=== PATIENT | female | born 1975 | race Caucasian/White ===

== ENCOUNTER → 2018-07-16 | Outpatient (CLI) | payer BC ==
--- NOTE | 2018-07-17 06:34 | MR ---
EXAMINATION TYPE: MR knee RT wo con DATE OF EXAM: 07/16/2018 COMPARISON: Outside right knee x-ray from 5 days ago. HISTORY: Rt knee swelling and pain x 1 month after bending down/felt a pop; hx of multiple surgeries /tumor removal TECHNIQUE: Multiplanar, multisequence images of the knee is performed without IV contrast. FINDINGS: MEDIAL MENISCUS: Anterior and posterior horns are intact without tear. LATERAL MENISCUS: Anterior and posterior horns are intact without tear. CRUCIATE LIGAMENTS: The anterior and posterior cruciate ligaments are intact and unremarkable. COLLATERAL LIGAMENTS: The medial collateral ligament and lateral collateral ligament complex are inta ct and unremarkable. EXTENSOR MECHANISM: Visualized quadriceps and patellar tendons are intact. EFFUSION: There is tiny suprapatellar joint effusion. POPLITEAL CYST: No popliteal/doherty cyst. TRICOMPARTMENT SPACES: Mild tricompartment joint space loss and spurring is present. CARTILAGE: Some early chondromalacia patella is seen with fissuring of cartilage along the posterior patellar pole. BONE MARROW SIGNAL: There is artifact overlying visualized portion of proximal tibial metadiaphysis l ikely from prior surgical fixation hardware. No suspicious signal or edema is seen superior to this. OTHER: No additional significant abnormality is appreciated. IMPRESSION: Evidence of prior surgery proximal tibial level. No meniscal or ligamentous tear is seen.
== END | disposition home or self-care (01) ==
LOC: RADMRIMAIN 18:27
PROVIDERS: ATTEND Orthopaedic Surgery
DX: M25.561 Pain in right knee (principal)

== ENCOUNTER → 2018-12-22 | Outpatient (CLI) | payer BC ==
--- NOTE | 2018-12-22 16:42 | XR ---
EXAMINATION: XR chest 2V DATE AND TIME: 12/22/2018 4:31 PM CLINICAL INDICATION: PHH; R10 TECHNIQUE: Departmental protocol COMPARISON: None FINDINGS: The lungs are clear. The pleural spaces are negative. The cardiac silhouette is not enlarged. The remainder of the mediastinal silhouette is unremarkable. The skeletal structures and soft tissues are negative for acute findings. IMPRESSION: NO ACUTE PROCESS.
== END | disposition home or self-care (01) ==
LOC: RADXRMAIN 16:10
PROVIDERS: ATTEND Family Medicine
DX: R05 Cough (principal)
CPT/HCPCS: 71046

== ENCOUNTER → 2019-09-28 | Outpatient (CLI) | payer BC ==
[2019-09-28 12:30] LABS: Basophils % (A) 0 %; Eosinophils # (A) 0.1 k/uL (0-0.7); Eosinophils % (A) 1 %; HCT 37.8 % (34.0-46.0); HGB 11.4 gm/dL (11.4-16.0); Hypochromasia Marked; Lymphocytes # (A) 1.3 k/uL (1.0-4.8); Lymphocytes % (A) 13 %; MCH 25.4 pg (25.0-35.0); MCHC 30.3 g/dL (31.0-37.0); MCV 83.9 fL (80.0-100.0); Mean Platelet Volume 6.6; Monocytes # (A) 0.7 k/uL (0-1.0); Monocytes % (A) 7 %; Neutrophils # (A) 7.4 k/uL (1.3-7.7); Neutrophils % (A) 76 %; Platelet Count 387 k/uL (150-450); RDW 15.3 % (11.5-15.5); WBC 9.7 k/uL (3.8-10.6)
[2019-09-28 13:05] LABS: Total Eosinophil Count 58 #EOS/uL (150-300)
[2019-09-28 18:44] LABS: African American GFR (CKD) 121.3 (60.0-200.0); Albumin 4.3 g/dL (3.80-4.90); Albumin/Globulin Ratio 1.72 (1.60-3.17); BUN/Creat Ratio 24.29 Ratio (12.00-20.00); Calcium 9.1 mg/dL (8.7-10.3); Globulin 2.5 g/dL (1.6-3.3); Non-African American GFR(CKD) 104.6 (60.0-200.0); Potassium 4.2 mmol/L (3.5-5.5); Total Bilirubin 0.3 mg/dL (0.3-1.2); Total Protein 6.8 g/dL (6.2-8.2)
== END | disposition home or self-care (01) ==
LOC: LABWHC1 11:33
PROVIDERS: ATTEND Internal Medicine Critical Care Medicine
DX: R05 Cough (principal)
CPT/HCPCS: 36415; 80053; 82785; 85008; 85025

== ENCOUNTER → 2019-09-30 | Outpatient (CLI) | payer BC ==
--- NOTE | 2019-09-30 16:35 | CT ---
EXAMINATION TYPE: CT chest w con DATE OF EXAM: 09/30/2019 COMPARISON: NONE HISTORY: cough, dyspnea CT DLP: 206.8 mGycm. Automated Exposure Control for Dose Reduction was Utilized. TECHNIQUE: CT scan of the thorax is performed following with IV Contrast, patient injected with 100 mL of Isovue 300. FINDINGS: LUNGS: Mild biapical pleural/parenchymal scarring. No suspicious focal consolidation or groundglass o pacity. There is no pleural effusion or pneumothorax seen bilaterally. The tracheobronchial tree i s patent. MEDIASTINUM: There are no greater than 1 cm hilar or mediastinal lymph nodes. No cardiomegaly or pe ricardial effusion is seen. 4 vessel origin from aortic arch which is normal variant OTHER: Mild multilevel spurring in the thoracic spine. IMPRESSION: No significant acute or chronic pulmonary process.
== END | disposition home or self-care (01) ==
LOC: RADCTMAIN 15:28
PROVIDERS: ATTEND Internal Medicine Critical Care Medicine
DX: R06.00 Dyspnea, unspecified (principal)
CPT/HCPCS: 71260; Q9967

== ENCOUNTER → 2019-10-07 | Outpatient (CLI) | payer BC ==
[2019-10-07 23:58] LABS: T4, Free (Free Thyroxine) 0.9 ng/dL (0.80-1.80)
== END | disposition home or self-care (01) ==
LOC: LABWHC1 11:56
PROVIDERS: ATTEND Internal Medicine Critical Care Medicine
DX: R05 Cough (principal)
CPT/HCPCS: 36415; 84439; 84443; 85652

== ENCOUNTER → 2019-10-08 | Outpatient (CLI) | payer BC ==
--- NOTE | 2019-10-09 07:58 | ECHOF ---
Referral Reason:R05 Chronic cough MEASUREMENTS -------- HEIGHT: 162.6 cm WEIGHT: 73.5 kg BP: RVIDd: 2.0 cm (< 3.3) IVSd: 0.8 cm (0.6 - 1.1) LVIDd: 4.0 cm (3.9 - 5.3) LVPWd: 1.0 cm (0.6 - 1.1) IVSs: 1.6 cm LVIDs: 2.1 cm LVPWs: 1.7 cm LAESV Index (A-L): 13.84 ml/m Ao Diam: 2.9 cm (2.0 - 3.7) AV Cusp: 2.1 cm (1.5 - 2.6) LA Diam: 2.7 cm (2.7 - 3.8) MV EXCURSION: 9.111 mm (> 18.000) MV EF SLOPE: 62 mm/s (70 - 150) EPSS: 0.8 cm MV E Iain: 0.87 m/s MV DecT: 83 ms MV A Iain: 0.55 m/s MV E/A Ratio: 1.60 RAP: 5.00 mmHg RVSP: 16.30 mmHg FINDINGS -------- Sinus rhythm. This was a technically good study. The left ventricular size is normal. Left ventricular wall thickness is normal. Overall left vent ricular systolic function is normal with, an EF between 55 - 60 %. The diastolic filling pattern is normal for the age of the patient 8.61. The right ventricle is normal in size. The left atrial size is normal. Normal LA size by volume 22+/-6 ml/m2. The right atrial size is normal. Interatrial and interventricular septum intact. The aortic valve is trileaflet and appears structurally normal. The mitral valve is normal. There is trace mitral regurgitation. The tricuspid valve appears structurally normal. Trace tricuspid regurgitation present. Right sultana tricular systolic pressure is normal at < 35 mmHg. There is no pulmonic regurgitation present. The aortic root size is normal. Normal inferior vena cava with normal inspiratory collapse consistent with estimated right atrial pre ssure of 5 mmHg. There is no pericardial effusion. CONCLUSIONS -------- 1. Sinus rhythm. 2. This was a technically good study. 3. The left ventricular size is normal. 4. Left ventricular wall thickness is normal. 5. Overall left ventricular systolic function is normal with, an EF between 55 - 60 %. 6. The diastolic filling pattern is normal for the age of the patient 8.61 7. The right ventricle is normal in size. 8. The left atrial size is normal. 9. Normal LA size by volume 22+/-6 ml/m2. 10. The right atrial size is normal. 11. Interatrial and interventricular septum intact. 12. The aortic valve is trileaflet and appears structurally normal. 13. The mitral valve is normal. 14. There is trace mitral regurgitation. 15. The tricuspid valve appears structurally normal. 16. Trace tricuspid regurgitation present. 17. Right ventricular systolic pressure is normal at < 35 mmHg. 18. There is no pulmonic regurgitation present. 19. The aortic root size is normal. 20. Normal inferior vena cava with normal inspiratory collapse consistent with estimated right atrial pressure of 5 mmHg. 21. There is no pericardial effusion. INDUSTRIAL LABORER: Paola Ferrari RDCS
== END | disposition home or self-care (01) ==
LOC: RADECHMAIN 11:59
PROVIDERS: ATTEND Internal Medicine Critical Care Medicine
DX: R05 Cough (principal)
CPT/HCPCS: 93306

== ENCOUNTER 2019-10-09 11:12 | Day surgery (SDC) | payer BC ==
[2019-10-08 11:16] VITALS: BMI 27.8
[~2019-10-09 11:12] MED LIST: DEXAMETHASONE SOD PHOSPHATE 10 MG/ML 1 ML VIAL IV ONE; LACTATED RINGERS 1,000 ML IV SCH; LIDOCAINE 1% (10MG/ML) FOR IV START INTRADERMA PRN; LIDOCAINE 4% (PF) 5 ML AMP IH PRN; MIDAZOLAM 2 MG/2 ML VIAL IV PRN; ONDANSETRON 4 MG/2 ML VIAL IVP ONE; SODIUM CHLORIDE 0.9% 1,000 ML IV SCH
[2019-10-09 11:34] VITALS: TEMP 97.9
[2019-10-09] MEDS ORDERED: LACTATED RINGERS 1,000 ML IV ONE (11:42)
[2019-10-09 11:48] LABS: Glucose,Whole Blood 102 mg/dL (75-99)
[2019-10-09] MEDS ORDERED: LIDOCAINE 2% (PF) 20 MG/ML 5 ML VIAL ONE (12:02)
[2019-10-09] MEDS ORDERED: LIDOCAINE 2% (PF) 20 MG/ML 5 ML VIAL INHALATION ONE (12:09)
[2019-10-09] MEDS ORDERED: MIDAZOLAM 2 MG/2 ML VIAL ONE (13:29)
[2019-10-09] MEDS ORDERED: LIDOCAINE 1% INJ 10MG/ML (20 ML MDV) ONE (13:29)
[2019-10-09] MEDS ORDERED: PROPOFOL 10 MG/ML 20 ML VIAL IV ONE (13:29)
[2019-10-09] MEDS ORDERED: LIDOCAINE 2% INJ 20 MG/ML INTRATRACH ONE (13:51)
--- NOTE | 2019-10-09 14:06 | P.PCN ---
Date of Procedure: 10/09/19 Preoperative Diagnosis: chronic cough Postoperative Diagnosis: 1 Chronic cough 2 Normal upper airways 3 Inflamed and irregular RML bronchus 4 Normal rest of the airways and no other significant abnormalities noted. Anesthesia: MAC Surgeon: Lynda Matos Estimated Blood Loss (ml): 10 Pathology: other Condition: stable Disposition: same day Operative Findings: This procedure was done under conscious sedation. The procedure was done and endoscopy today. Indication for the procedure was persistent cough for the past 3 months. The patient's cough has been not responsive to conventional treatments. This procedure was done and endoscopy room. A consent was obtained. Timeout was done. After achieving adequate sedation, the flexible bronchoscope was introduced through the left nostril was advanced upper airway. Examination of the posterior oropharynx, larynx, vallecula, epiglottis, arytenoids and the cords were done and all of these upper airway structures were within normal limits. Normal vocal cord mobility and function. A total of 2 mL of 1% lidocaine was applied to the vocal cords and Following that the bronchoscope was advanced into the upper airway. Examination of the tracheal bronchial tree was done. The entire trachea was within normal limits. Janki was sharp in the midline. The bilateral main stem bronchi were within normal limits. Right upper lobe bronchus was normal. Bronchus intermedius was normal. Right middle lobe bronchus was significantly inflamed erythematous and irregular. The mucosa was regular and the surface had engorged blood vessels and it was quite friable. The medial and the lateral segments of the right middle lobe were visualized and seen. The right lower lobe bronchus and the various segments including the medial basilar, anterior lateral and posterior segments and the severe symptoms of all within normal limits. Examination of the left side including left main stem bronchus, left upper lobe bronchus, lingular segment, left lower bronchus and all of these airways disease and normal limits. Bronchoscope was moved to the right middle lobe and a BAL of the right lobe was done utilizing a 80 cc of fluid in the form of saline and around 20 mL of fluid was aspirated. Following that, I performed and the bronchial brushings of the right middle lobe that was quite abnormal as discussed. I did also one endobronchial biopsies of the right middle lobe bronchus. Following that I encountered some endobronchial bleeding from the mucosal surface of the estimated blood loss was somewhat between 5-10 mL which stopped spontaneously and no further intervention was done. Therapeutic airway suctioning was done and bronchus was ultimately removed and the patient was transferred recovery in stable condition. All of the symptoms will be sent for microbial analysis, cytology and histologic evaluation. We'll continue to follow. No foreign bodies identified. No anatomic abnormalities identified. The patient tolerated the procedure well. The cough and during the procedure was minimal and the patient started to have coughing following the completion of the procedure and removal of the bronchoscope.
[2019-10-09 14:49] VITALS: BP 146/88; PULSE 95; RESP 20
[2019-10-09 15:50] LABS: Appearance,BF Bloody; Nucleated Cells, Body Fluid 6000 /uL; RBC, Body Fluid 179000 /uL
[2019-10-09 17:44] LABS: Mononuclear WBC,Body Fluid 25 %; Polynuclear WBC,Body Fluid 75 %; Total Cells Counted,Body Fluid 100
== END 2019-10-09 15:11 | disposition home or self-care (01) ==
LOC: ORWHC2ENDO 11:12
PROVIDERS: ATTEND Internal Medicine Critical Care Medicine
DX: J40 Bronchitis, not specified as acute or chronic (principal); Z82.3 Family history of stroke; Z79.891 Long term (current) use of opiate analgesic; Z79.51 Long term (current) use of inhaled steroids; Z79.899 Other long term (current) drug therapy
CPT/HCPCS: 31625; 31623; 31624; 94640; 81025; 87798 ×3; 87496; 87529; 88108; 88104; 87498; 88305; 89050; 87252; 87502; 87634; 87070; 87205; 87116; 87102; 87206; 87635; J2001 ×3; J2250; J1100; J2405; J2704; 31628

== ENCOUNTER → 2019-10-22 | Outpatient (CLI) | payer BC | END | disposition home or self-care (01) | LOC: LABWHC1 08:40 | PROVIDERS: ATTEND Family Medicine | DX: R06.02 Shortness of breath (principal); R05 Cough ==

== ENCOUNTER → 2019-11-26 | Outpatient (CLI) | payer BC ==
[2019-11-27 02:28] LABS: Peanut IgE <0.10 kU/L
[2019-11-27 02:29] LABS: Codfish IgE <0.10 kU/L
[2019-11-27 02:31] LABS: Clam IgE <0.10 kU/L; Egg White IgE <0.10 kU/L; Scallop IgE <0.10 kU/L; Walnut IgE (Food) <0.10 kU/L
[2019-11-27 02:32] LABS: Shrimp IgE <0.10 kU/L; Soybean IgE <0.10 kU/L
[2019-11-27 02:45] LABS: Cat Epith & Dander IgE <0.10 kU/L; Dermato. farinae IgE <0.10 kU/L
[2019-11-27 02:46] LABS: Cockroach IgE <0.10 kU/L; Dog Dander IgE <0.10 kU/L
[2019-11-27 02:47] LABS: Alternaria alternata IgE <0.10 kU/L; Aspergillus fumagatus IgE <0.10 kU/L; Birch IgE 1.73 kU/L; Cladosporian herbarum IgE <0.10 kU/L; Maple (Box Elder) IgE <0.10 kU/L
[2019-11-27 02:48] LABS: Elm IgE <0.10 kU/L; Oak IgE <0.10 kU/L
[2019-11-27 02:49] LABS: Ragweed,Common IgE 0.51 kU/L
== END | disposition home or self-care (01) ==
LOC: LABMAIN 15:37
PROVIDERS: ATTEND Internal Medicine Critical Care Medicine
DX: R05 Cough (principal)
CPT/HCPCS: 36415; 82785; 86003

== ENCOUNTER → 2020-01-15 | Outpatient (CLI) | payer BC ==
--- NOTE | 2020-01-19 21:09 | PE ---
EXAMINATION TYPE: PET CT fusion skull to thigh DATE OF EXAM: 01/15/2020 COMPARISON: CT chest 09/30/2019 Prior PET/CT: None HISTORY: Solitary pulmonary nodule TECHNIQUE: Following the intravenous administration of 9.956 mCi of F-18 FDG, whole body images are performed from the skull base to the midthigh. Images are reviewed on the computer in the coronal, a xial, and sagittal planes. Reconstructed rotating images are created on independent workstation and reviewed on the computer. A localization and attenuation correction CT is performed in conjunction with the PET scan. SCAN: Initial Scan Blood glucose: 96 mg/dL FINDINGS: NECK: No suspicious hypermetabolic activity. THORAX: No suspicious hypermetabolic activity. ABDOMEN/PELVIS: No suspicious hypermetabolic activity. OSSEOUS STRUCTURES: No suspicious hypermetabolic activity. LOCALIZATION CT: There is a round mass of the left breast measuring 1.9 x 2.0 cm with no hypermetabol ic activity and with essentially cystic Hounsfield units of 20 (3:92). Too small to characterize hypo dense lesion of the right liver (3:133) without metabolic activity. IMPRESSION: 1. No evidence of pulmonary nodule or suspicious hypermetabolic activity. 2. Left breast 2.0 cm fluid density round mass with no hypermetabolic activity, may represent breast cyst. Recommend correlation with breast ultrasound.
== END | disposition home or self-care (01) ==
LOC: RADPETMAIN 15:17
PROVIDERS: ATTEND Family Medicine
DX: N63.20 Unspecified lump in the left breast, unspecified quadrant (principal)
CPT/HCPCS: 78815; A9552

== ENCOUNTER → 2020-01-26 | Outpatient (CLI) | payer BC ==
--- NOTE | 2020-01-26 15:36 | CT ---
EXAMINATION TYPE: CT chest wo con DATE OF EXAM: 01/26/2020 COMPARISON: 09/30/2019 HISTORY: Cough and SOB x8 months CT DLP: 254 mGycm, Automated exposure control for dose reduction was used. CONTRAST: Performed injected with 0 mL of Isovue 300. TECHNIQUE: Axial images were obtained at 5 mm thick sections. Reconstructed images are reviewed on Bench computer in the coronal plane. FINDINGS: No suspicious lung nodules or focal infiltrates are present. No enlarged mediastinal or hilar adenopathy is evident. The ascending aorta diameter at the level o f the main pulmonary artery is 2.9 cm. The main pulmonary artery diameter at the bifurcation is 2.[address] sections are obtained through the upper abdomen. Abdomen is essentially unremarkable. IMPRESSIONS: 1. Normal Chest CT.
== END | disposition home or self-care (01) ==
LOC: RADCTMAIN 15:02
PROVIDERS: ATTEND Internal Medicine Critical Care Medicine
DX: R05 Cough (principal)
CPT/HCPCS: 71250

== ENCOUNTER → 2020-01-29 | Outpatient (CLI) | payer BC ==
--- NOTE | 2020-02-02 12:30 | USB ---
Reason for exam: clinical finding. US Breast LT Left complete breast ultrasound includes all four quadrants, the retroareolar region and axilla. Finding demonstrates a 0.7 x 0.5 x 0.7cm oval, cystic lesion at 12 o'clock, a 2.1 x 1.1 x 1.7cm oval, cystic lesion at 1 o'clock and a 2.8 x 1.1 x 2.9cm oval, cystic lesion at 9 o'clock, seen on CT 01/26/20and Pet CT 01/15/20. Thin walled cysts. These results were verbally communicated with the patient and result sheet given to the patient on 01/29/20. ASSESSMENT: Benign, BI-RAD 2 RECOMMENDATION: Follow-up diagnostic mammogram of both breasts in 3 months.
== END | disposition home or self-care (01) ==
LOC: RADUSWWP 13:40
PROVIDERS: ATTEND Family Medicine
DX: N63.20 Unspecified lump in the left breast, unspecified quadrant (principal)

== ENCOUNTER → 2020-02-16 | Outpatient (CLI) | payer BC ==
--- NOTE | 2020-03-03 12:52 | EM ---
EVENT MONITOR EVENT MONITOR: Patient was monitored between February 15 and February 28, 2020. The rhythm strip revealed sinus mechanism with normal conduction. Episode of sinus tachycardia was noted. The symptoms of chest pressure and shortness of breath correlated with sinus mechanism. There was no evidence of ventricular ectopic activity or atrial fibrillation. MADDY / SINDY: [id number] /
== END | disposition home or self-care (01) ==
LOC: RADECHMAIN 12:45
PROVIDERS: ATTEND Family Medicine
DX: R00.0 Tachycardia, unspecified (principal)
CPT/HCPCS: 93270

== ENCOUNTER → 2020-02-18 | Outpatient (CLI) | payer BC ==
--- NOTE | 2020-02-18 14:02 | NM ---
EXAMINATION TYPE: NM bone scan whole body DATE OF EXAM: 02/18/2020 COMPARISON: CT chest 1919 HISTORY: Pain Delayed whole-body scanning was performed following the injection of 22.6 mCi Tc 99m MDP. Images acq uired 3 hours post injection. FINDINGS: Abnormal uptake involving the sternoclavicular joints and shoulders likely degenerative. Moderate int ensity uptake at L5-S1 likely related to degenerative disc disease. IMPRESSION: 1. No suspicious uptake to suggest metastases. Abnormal uptake involving the sternoclavicular joints and shoulders likely is post arthritic. Recent CT scan demonstrated no destructive processes in the r egion. 2. Abnormal uptake L5-S1 likely degenerative. And corresponds to degenerative changes seen by recent PET scan with bilateral spondylolysis.
== END | disposition home or self-care (01) ==
LOC: RADNMMAIN 10:03
PROVIDERS: ATTEND Family Medicine
DX: R94.8 Abnormal results of function studies of other organs and systems (principal)
CPT/HCPCS: 78306; A9503

== ENCOUNTER → 2020-03-04 | Outpatient (CLI) | payer BC | END | disposition home or self-care (01) | LOC: LABWHC1 15:51 | PROVIDERS: ATTEND Family Medicine | DX: Z20.828 Contact with and (suspected) exposure to other viral communicable diseases (principal) | CPT/HCPCS: U0003; C9803 ==

== ENCOUNTER → 2020-12-19 | Outpatient (CLI) | payer BC | END | disposition home or self-care (01) | LOC: LABWHC1 12:19 | PROVIDERS: ATTEND Family Medicine | DX: R07.89 Other chest pain (principal) | CPT/HCPCS: 36415; 83880; 84484 ==

== ENCOUNTER → 2021-01-25 | Outpatient (CLI) | payer BC ==
--- NOTE | 2021-01-26 08:29 | XR ---
EXAMINATION TYPE: XR knee complete LT DATE OF EXAM: 01/25/2021 COMPARISON: NONE HISTORY: Pain TECHNIQUE: Three views are submitted. FINDINGS: Joint spaces are preserved. Osseous structures are intact. No acute fracture seen. IMPRESSION: 1. No acute fracture or dislocation.
== END ==
LOC: RADXRMAIN 17:11
PROVIDERS: ATTEND Family Medicine
DX: M25.562 Pain in left knee (principal)

== ENCOUNTER → 2021-04-01 | Outpatient (CLI) | payer BC ==
[2021-04-01 11:21] LABS: Basophils % (A) 1 %; Eosinophils # (A) 0.1 k/uL (0-0.7); Eosinophils % (A) 3 %; HCT 37.2 % (34.0-46.0); HGB 11.6 gm/dL (11.4-16.0); Hypochromasia Slight; Lymphocytes # (A) 1.2 k/uL (1.0-4.8); Lymphocytes % (A) 30 %; MCHC 31.1 g/dL (31.0-37.0); MCV 90.2 fL (80.0-100.0); Mean Platelet Volume 7.1; Monocytes # (A) 0.3 k/uL (0-1.0); Monocytes % (A) 7 %; Neutrophils # (A) 2.2 k/uL (1.3-7.7); Neutrophils % (A) 57 %; Platelet Count 336 k/uL (150-450); RBC 4.12 m/uL (3.80-5.40); RDW 13.8 % (11.5-15.5); WBC 3.9 k/uL (3.8-10.6)
[2021-04-01 12:08] LABS: Anisocytosis (M) Present; Poikilocytosis (M) Present
== END | disposition home or self-care (01) ==
LOC: LABWHC1 10:44
PROVIDERS: ATTEND Family Medicine
DX: D50.9 Iron deficiency anemia, unspecified (principal); R53.83 Other fatigue; R05.9 Cough, unspecified
CPT/HCPCS: 36415; 85025; 86157; 86340; 86618

== ENCOUNTER → 2021-05-10 | Outpatient (CLI) | payer BC ==
--- NOTE | 2021-05-10 13:39 | XR ---
EXAMINATION TYPE: XR chest 2V DATE OF EXAM: 05/10/2021 COMPARISON: Chest x-ray 12/22/2018 HISTORY: Chronic cough TECHNIQUE: Frontal and lateral views of the chest are obtained. FINDINGS: There is no focal air space opacity, pleural effusion, or pneumothorax seen. The cardiac silhouette size is within normal limits. There is bronchial wall thickening. The osseous structures are intact. IMPRESSION: Correlate for bronchitis.
== END | disposition home or self-care (01) ==
LOC: RADXRMAIN 11:49
PROVIDERS: ATTEND Family Medicine
DX: R05.3 Chronic cough (principal)
CPT/HCPCS: 71046

== ENCOUNTER → 2021-05-10 | Outpatient (CLI) | payer BC ==
--- NOTE | 2021-05-10 12:32 | MM ---
Reason for exam: follow-up at short interval from prior study. Last mammogram was performed 2 years ago. History: Cyst aspiration, 2016. Physical Findings: Nurse Summary: 1cm nodule in the left breast at 3-4 o'clock and a hard 3cm nodule in the left breast at 10-11 o'clock (nurse TM). MG 3D Diag Mammo W/Cad ZARIA Bilateral CC and MLO view(s) were taken. Prior study comparison: May 01, 2019, mammogram, performed at [facility]. The breast tissue is heterogeneously dense. This may lower the sensitivity of mammography. Enlarging nodularity upper outer quadrant right breast. Enlarging subareolar circumscribed mass left breast and possibly one new mass. These measure up to 3.3cm. These results were verbally communicated with the patient and result sheet given to the patient on 05/10/21. ASSESSMENT: Incomplete: need additional imaging evaluation, BI-RAD 0 RECOMMENDATION: Ultrasound of both breasts. (right lateral, left entire)
--- NOTE | 2021-05-10 12:36 | USB ---
Reason for exam: additional evaluation requested from abnormal screening. History: Cyst aspiration, 2016. US Breast Limited BILAT Technologist: Valentina Santana Right limited breast ultrasound including focal area of concern, retroareolar and axilla demonstrates a 0.8 x 0.6 x 0.6cm cystic cluster at 9 o'clock and a 3.0 x 2.3 x 1.2cm cystic lesion at 10 o'clock. Left complete breast ultrasound includes all four quadrants, the retroareolar region and axilla. Finding demonstrates a 2.6 x 2.2 x 1.1cm cystic lesion at 12 o'clock, a 3.1 x 2.1 x 1.3cm cystic lesion at 1 o'clock and a 2.3 x 2.5 x 1.8cm cystic lesion at 9 o'clock palpable. Right scanned 6-12 o'clock. Left scanned entire breast. These results were verbally communicated with the patient and result sheet given to the patient on 05/10/21. ASSESSMENT: Probably benign, BI-RAD 3 RECOMMENDATION: Follow-up diagnostic mammogram of both breasts in 1 year.
== END | disposition home or self-care (01) ==
LOC: RADMAMWWP 10:00
PROVIDERS: ATTEND Family Medicine
DX: N60.01 Solitary cyst of right breast (principal); N60.02 Solitary cyst of left breast
CPT/HCPCS: 77062; 77066

== ENCOUNTER → 2021-05-17 | Outpatient (CLI) | payer BC | END | disposition home or self-care (01) | LOC: LABWHC1 11:09 | PROVIDERS: ATTEND Family Medicine | DX: Z20.822 Contact with and (suspected) exposure to COVID-19 (principal) | CPT/HCPCS: U0003; C9803 ==

== ENCOUNTER → 2021-07-06 | Outpatient (CLI) | payer BC ==
--- NOTE | 2021-07-07 12:31 | ECHOF ---
Referral Reason:chest pain MEASUREMENTS -------- HEIGHT: 162.6 cm WEIGHT: 70.3 kg BP: RVIDd: 3.2 cm (< 3.3) IVSd: 1.1 cm (0.6 - 1.1) LVIDd: 4.7 cm (3.9 - 5.3) LVPWd: 1.1 cm (0.6 - 1.1) IVSs: 1.3 cm LVIDs: 2.9 cm LVPWs: 1.5 cm LAESV Index (A-L): 19.84 ml/m Ao Diam: 3.0 cm (2.0 - 3.7) AV Cusp: 1.9 cm (1.5 - 2.6) LA Diam: 3.2 cm (2.7 - 3.8) MV EXCURSION: 17.007 mm (> 18.000) MV EF SLOPE: 86 mm/s (70 - 150) EPSS: 0.7 cm MV E Iain: 0.92 m/s MV DecT: 123 ms MV A Iain: 0.57 m/s MV E/A Ratio: 1.61 RAP: 5.00 mmHg RVSP: 28.77 mmHg FINDINGS -------- Sinus rhythm. This was a technically adequate study. The left ventricular size is normal. Left ventricular wall thickness is normal. Overall left vent ricular systolic function is normal with, an EF between 55 - 60 %. The diastolic filling pattern is normal for the age of the patient {E/E'}. The right ventricle is normal in size. Normal LA size by volume 22+/-6 ml/m2. The right atrial size is normal. Interatrial and interventricular septum intact. Mobile interatrial septum. The aortic valve is trileaflet, and appears structurally normal. No aortic stenosis or regurgitation. The mitral valve is normal. There is trace to mild mitral regurgitation. The tricuspid valve appears structurally normal. Trace tricuspid regurgitation present. Right sultana tricular systolic pressure is normal at < 35 mmHg. The right ventricular systolic pressure, as gage ured by Doppler, is 28.77mmHg. There is no pulmonic regurgitation present. The aortic root size is normal. Normal inferior vena cava with normal inspiratory collapse consistent with estimated right atrial pre ssure of 5 mmHg. There is no pericardial effusion. CONCLUSIONS -------- 1. Left ventricular wall thickness is normal. 2. Overall left ventricular systolic function is normal with, an EF between 55 - 60 %. 3. Normal LA size by volume 22+/-6 ml/m2. 4. Mobile interatrial septum. 5. The aortic valve is trileaflet, and appears structurally normal. No aortic stenosis or regurgitati on. 6. There is trace to mild mitral regurgitation. 7. Trace tricuspid regurgitation present. DRUG SAFETY DATA MANAGEMENT SPECIALIST: Neris Mattson RDCS
== END | disposition home or self-care (01) ==
LOC: RADECHMAIN 14:09
PROVIDERS: ATTEND Family Medicine
DX: I08.1 Rheumatic disorders of both mitral and tricuspid valves (principal)
CPT/HCPCS: 93306

== ENCOUNTER → 2021-10-20 | Outpatient (CLI) | payer BC ==
[2021-10-20 15:29] LABS: INR 0.9 (0.90-1.11)
[2021-10-20 19:46] LABS: EBV-EA (IgG) <0.2 AI; EBV-EBNA(IgG) >8.0 AI; EBV-VCA (IgG) >8.0 AI; EBV-VCA (IgM) 0.4 AI
== END | disposition home or self-care (01) ==
LOC: LABWHC1 09:06
PROVIDERS: ATTEND Family Medicine
DX: E53.8 Deficiency of other specified B group vitamins (principal); R05.9 Cough, unspecified; R23.3 Spontaneous ecchymoses
CPT/HCPCS: 36415; 85610; 85652; 86663; 86664; 86665

== ENCOUNTER → 2024-02-03 | Outpatient (CLI) | payer BC | END | disposition home or self-care (01) | LOC: RADECHMAIN 07:41 | PROVIDERS: ATTEND Family Medicine | DX: I48.0 Paroxysmal atrial fibrillation (principal) | CPT/HCPCS: 93270 ==